=== PATIENT | male | born 1995 ===

== ENCOUNTER 2023-10-22 11:00 | Inpatient (IN) | payer OTHER, BC ==
[2023-10-22] MEDS ORDERED: hydrALAZINE 20 MG/ML VIAL SLOW IVP PRN (12:08)
[2023-10-22] MEDS ORDERED: Ondansetron PF 4 MG/2 ML Vial IVP PRN (12:08)
[2023-10-22] MEDS ORDERED: Morphine 4 MG/ML VIAL ONE (12:10)
[2023-10-22] MEDS ORDERED: traMADol HCl 50 MG TAB PO PRN (12:11)
[2023-10-22 12:16] LABS: #Basophils 0.05 10x3/uL (0.0-0.2); %Basophils 0.4 % (0.0-1.0); %Lymphocytes 9.2 % (21.0-51.0); %Monocytes 5.2 % (0.0-10.0); %Neutrophils 83.9 % (42.0-75.0); Hematocrit 40.6 % (42.0-52.0); Hemoglobin 13.7 g/dL (14.0-18.0); Mean Corpuscular HGB CONC 33.7 g/dL (32.0-36.0); Mean Corpuscular Hemoglobin 31.4 pg (27.0-31.0); Mean Corpuscular Volume 93.1 fL (78.0-98.0); Mean Platelet Volume 11.4 fL (7.4-10.4); Platelet Count 277 10x3/uL (130-400); RBC Distribution Width 12.3 % (11.5-14.5); Red Blood Cell (RBC) Count 4.36 mill/uL (4.70-6.10)
[2023-10-22] MEDS ORDERED: PROPOFOL 0 ML ONE (12:26)
[2023-10-22 12:38] LABS: ALT (SGPT) 16 U/L (8-55); AST (SGOT) 19 U/L (5-34); Alkaline Phosphatase 62 U/L (40-110); Anion Gap 9 mmol/L (10-20); BUN (Urea Nitrogen) 16 mg/dL (8.9-20.6); Bilirubin, Total 1.2 mg/dL (0.2-1.2); Calc. Creatinine Clearance 0 mL/min (70-130); Calcium 9.6 mg/dL (7.8-10.44); Carbon Dioxide 29 mmol/L (22-29); Chloride 103 mmol/L (98-107); Estimated GFR 121; Globulin 2.7 g/dL (2.4-3.5); Glucose 118 mg/dL (70-105); Potassium 3.8 mmol/L (3.5-5.1); Protein, Total 6.7 g/dL (6.0-8.3); Sodium 137 mmol/L (136-145)
[2023-10-22] MEDS ORDERED: PROPOFOL 20 ML ONE ×2 (12:40)
[2023-10-22] MEDS: Ketorolac Tromethamine 30 MG (1 mL) VIAL IVP SCH ×2 (14:23→18:26)
[2023-10-22] MEDS: Sodium Chloride 0.9% 1,000 ML IV SCH (14:52)
[2023-10-22 16:25] VITALS: BMI 23.1
[2023-10-22] MEDS: Acetaminophen 325 MG TAB PO SCH (18:27)
[2023-10-22] MEDS: traMADol HCl 50 MG TAB PO SCH (18:27)
[2023-10-22] MEDS: Senokot S 8.6-50 MG TAB PO SCH (20:49)
[2023-10-22] MEDS: Famotidine 20 MG TAB PO SCH (20:49)
[2023-10-22] MEDS: Morphine 2 MG/ML VIAL SLOW IVP PRN (20:50)
[2023-10-23 05:51] LABS: #Basophils 0.04 10x3/uL (0.0-0.2); %Basophils 0.7 % (0.0-1.0); %Lymphocytes 27.6 % (21.0-51.0); %Monocytes 11.1 % (0.0-10.0); %Neutrophils 57.4 % (42.0-75.0); Hematocrit 38.1 % (42.0-52.0); Hemoglobin 12.4 g/dL (14.0-18.0); Mean Corpuscular HGB CONC 32.5 g/dL (32.0-36.0); Mean Corpuscular Hemoglobin 30.8 pg (27.0-31.0); Mean Corpuscular Volume 94.8 fL (78.0-98.0); Mean Platelet Volume 11.3 fL (7.4-10.4); Platelet Count 230 10x3/uL (130-400); RBC Distribution Width 12.5 % (11.5-14.5); Red Blood Cell (RBC) Count 4.02 mill/uL (4.70-6.10)
[2023-10-23 06:08] LABS: Anion Gap 9 mmol/L (10-20); BUN (Urea Nitrogen) 11 mg/dL (8.9-20.6); Calc. Creatinine Clearance 149 mL/min (70-130); Calcium 8.7 mg/dL (7.8-10.44); Carbon Dioxide 25 mmol/L (22-29); Chloride 109 mmol/L (98-107); Estimated GFR 120; Glucose 100 mg/dL (70-105); Potassium 4.3 mmol/L (3.5-5.1); Sodium 139 mmol/L (136-145)
[2023-10-23 06:35] LABS: INR-International Normal Ratio 1.1; PTT 27.3 sec (22.9-36.1); Prothrombin Time 14.3 sec (12.0-14.7)
[2023-10-23] MEDS: Polyethylene Glycol 3350 17 GM Packet PO SCH (08:08)
[2023-10-23] MEDS: CEFAZOLIN 2 GM in Sodium Chloride 0.9% 100 ML IVPB SCH (10:16)
[2023-10-23] MEDS ORDERED: HYDROmorphone 0.5 MG/0.5 ML SYRINGE ONE ×3 (11:21→13:44)
[2023-10-23] MEDS ORDERED: Lidocaine 1% PF 5 ML VIAL ONE (11:25)
[2023-10-23] MEDS ORDERED: Ondansetron PF 4 MG/2 ML Vial ONE (11:25)
[2023-10-23] MEDS ORDERED: PROPOFOL 20 ML ONE (11:25)
[2023-10-23] MEDS ORDERED: Midazolam HCl 2 mg/2 ml Vial ONE (11:26)
[2023-10-23] MEDS ORDERED: fentaNYL PF 100 MCG/2 ML SYRINGE ONE ×3 (12:03→13:44)
[2023-10-23] MEDS ORDERED: ePHEDrine Sulfate 50 MG/10 ML VIAL ONE (12:12)
[2023-10-23] MEDS ORDERED: Ketorolac Tromethamine 30 MG (1 mL) VIAL ONE (12:49)
[2023-10-23] MEDS ORDERED: HYDROmorphone 2 MG/ML VIAL SLOW IVP PRN (12:50)
[2023-10-23] MEDS ORDERED: Ondansetron HCl/PF 4 MG/2 ML Vial IVP PRN (12:50)
[2023-10-23] MEDS ORDERED: Meperidine HCl/PF 25 MG/ML VIAL SLOW IVP PRN (12:50)
[2023-10-23] MEDS ORDERED: Promethazine HCl 25 MG/ML VIAL IM PRN (12:50)
[2023-10-23] MEDS: Cyclobenzaprine 10 MG TAB PO PRN (21:34)
[2023-10-24 08:13] VITALS: BP 106/65; TEMP 97.8
[2023-10-24] MEDS: Enoxaparin 40 MG (0.4 mL) SYRINGE SC SCH (10:01)
== END 2023-10-24 15:55 | disposition home or self-care (01) | DRG 494 ==
LOC: ERS 11:00 → SURG B 13:40
PROVIDERS: ADMIT Specialist; ATTEND Specialist
PROC: 0QSG06Z Reposition Right Tibia with Intramedullary Internal Fixation Device, Open Approach (ICD-10-PCS; principal; 2023-10-23)
DX: S82.201A Unspecified fracture of shaft of right tibia, initial encounter for closed fracture (principal); S82.401A Unspecified fracture of shaft of right fibula, initial encounter for closed fracture; S82.891A Other fracture of right lower leg, initial encounter for closed fracture; G89.11 Acute pain due to trauma; V87.8XXA Person injured in other specified noncollision transport accidents involving motor vehicle (traffic), initial encounter
CPT/HCPCS: 29505; 36415; 80048; 80053; 83605; 85025; 85610; 85730; 93005; 96374; 99152; C1713; G0390; J1170; J1650; J1885; J2250; J2270; J2272; J2405; J2704; J3490; J7050